=== PATIENT | male | born 1985 | race Caucasian/White ===

== ENCOUNTER 2017-05-08 20:30 | Outpatient (CLI) | payer BC | END 2017-05-08 20:31 | disposition home or self-care (01) | LOC: SLEEPLAB 20:30 | PROVIDERS: ATTEND Family Medicine | DX: G47.33 Obstructive sleep apnea (adult) (pediatric) (principal); R53.83 Other fatigue; R51 Headache; I10 Essential (primary) hypertension; E66.9 Obesity, unspecified; R06.83 Snoring; R00.0 Tachycardia, unspecified | CPT/HCPCS: 95811 ==

== ENCOUNTER → 2017-06-07 | Outpatient (CLI) | payer BC | LOC: SLEEPLAB 18:57 | PROVIDERS: ATTEND Family Medicine | DX: G47.33 Obstructive sleep apnea (adult) (pediatric) (principal); E66.9 Obesity, unspecified; I10 Essential (primary) hypertension | CPT/HCPCS: 95811 ==

== ENCOUNTER 2017-08-01 08:59 | Outpatient (CLI) | payer BC ==
--- NOTE | 2017-08-01 10:43 | ULT ---
ULTRASOUND ABDOMEN LIMITED: (RIGHT UPPER QUADRANT) DATE: 08-01-17 HISTORY: 4O-year-old male with elevated liver enzymes. FINDINGS: The gallbladder has normal wall thickness and has no evidence of gallstones or sludge. The hepatic e chogenicity is diffusely increased, consistent with fatty liver. The right kidney has normal echogen icity and has no hydronephrosis. The pancreas is visualized, although ultrasound is relatively insen sitive for pancreatic pathology compared to CT and MRI. There is no biliary dilation. The common du ct caliber is 3 mm. IMPRESSION: 1) Hepatic steatosis. 2) Otherwise negative. jn POS: CET
== END 2017-08-01 09:00 | disposition home or self-care (01) ==
LOC: ULT 08:59
PROVIDERS: ATTEND Family Medicine
DX: R79.89 Other specified abnormal findings of blood chemistry (principal); K76.0 Fatty (change of) liver, not elsewhere classified
CPT/HCPCS: 76705